=== PATIENT | female | born 1965 | race Caucasian/White ===

== ENCOUNTER 2017-07-05 14:07 | Emergency (ER) | payer OTHER ==
[~2017-07-05] VITALS: Ht 167.6 cm; Wt 122.5 kg
== END 2017-07-05 19:24 | disposition home or self-care (01) ==
LOC: ER 14:07
DX: R06.02 Shortness of breath (principal); F06.4 Anxiety disorder due to known physiological condition

== ENCOUNTER 2017-07-12 02:40 | Emergency (ER) | payer OTHER ==
[~2017-07-12] VITALS: Ht 167.6 cm; Wt 122.5 kg
== END 2017-07-12 10:45 | disposition home or self-care (01) ==
LOC: ER 02:40
DX: R10.32 Left lower quadrant pain (principal); J98.01 Acute bronchospasm